=== PATIENT | female | born 1980 | race Caucasian/White ===

== ENCOUNTER 2019-04-16 12:57 | Outpatient (CLI) | payer BC ==
--- NOTE | 2019-04-16 13:45 | RAD ---
LEFT ANKLE 3 VIEWS: HISTORY: Injury, left ankle pain FINDINGS: Soft tissue swelling is present. The ankle mortise is maintained. No acute fracture or dislocation is identified.
== END 2019-04-16 12:58 | disposition home or self-care (01) ==
LOC: SCSRAD 12:57
PROVIDERS: ATTEND Obstetrics & Gynecology
DX: M25.572 Pain in left ankle and joints of left foot (principal)

== ENCOUNTER 2019-05-10 09:11 | Inpatient (IN) | payer BC ==
[2019-05-10] MEDS ORDERED: Morphine 4 MG/ML VIAL ONE ×2 (09:35→11:33)
[2019-05-10 09:50] LABS: #Eosinphils 0.1 thou/uL (0.0-0.7); #Lymphocytes 1.3 thou/uL (1.20-3.40); #Monocytes 0.3 thou/uL (0.11-0.59); #Neutrophils 3.4 thou/uL (1.40-6.50); %Basophils 0.1 % (0.0-1.0); %Eosinophils 2.3 % (0.0-10.0); %Lymphocytes 25.8 % (21.0-51.0); %Monocytes 5.8 % (0.0-10.0); Hemoglobin 14.6 g/dL (12.0-16.0); Mean Corpuscular HGB CONC 35.6 g/dL (32.0-36.0); Mean Corpuscular Hemoglobin 33.9 pg (27.0-31.0); Mean Corpuscular Volume 95.2 fL (78.0-98.0); Mean Platelet Volume 7.4 fL (7.4-10.4); Platelet Count 157 thou/uL (130-400); Red Blood Cell (RBC) Count 4.31 mill/uL (4.20-5.40); White Blood Cell (WBC) Count 5.2 thou/uL (4.8-10.8)
--- NOTE | 2019-05-10 09:53 | RAD ---
XR Chest 1 View Portable History: Cough Comparison: None. Findings: Lungs are clear. No pneumothorax or effusion. Cardiac silhouette and mediastinal contours a re within normal limits. No acute osseous abnormality. Right upper quadrant surgical clips. Impression: No acute intrathoracic abnormality.
[2019-05-10 09:59] LABS: BHCG - Serum Negative (NEGATIVE); Pregs Control Background? CLEAR/WHITE (CLR/WHITE); Pregs Control Bar Appear? YES (CONTROL BAR)
[2019-05-10 10:17] LABS: ALT (SGPT) 37 U/L (8-55); AST (SGOT) 59 U/L (5-34); Albumin 4.8 g/dL (3.5-5.0); Alkaline Phosphatase 74 U/L (40-110); Anion Gap 15 mmol/L (10-20); BUN (Urea Nitrogen) 8 mg/dL (7.0-18.7); Bilirubin, Total 1.5 mg/dL (0.2-1.2); Calc. Creatinine Clearance 0 mL/min (70-130); Calcium 9.8 mg/dL (7.8-10.44); Carbon Dioxide 23 mmol/L (22-29); Chloride 103 mmol/L (98-107); Estimated GFR-MDRD 90; Globulin 2.6 g/dL (2.4-3.5); Glucose 108 mg/dL (70-105); Lipase 171 U/L (8-78); Potassium 3.4 mmol/L (3.5-5.1); Protein, Total 7.4 g/dL (6.0-8.3); Sodium 138 mmol/L (136-145)
--- NOTE | 2019-05-10 10:44 | CT ---
CT abdomen and pelvis with IV contrast. Oral contrast was not administered. INDICATIONS: Abdominal pain COMPARISON: None FINDINGS: Lung bases are clear Evaluation of the liver reveals abnormal intra and extrahepatic biliary duct dilatation. There is denita dence of prior cholecystectomy with surgical clips in the gallbladder fossa. There is mild prominence of pancreatic duct. No definite pancreatic mass identified. Etiology for the biliary dilat ation is not apparent. Spleen upper normal size, otherwise unremarkable Stomach and duodenum appear unremarkable. Adrenal glands appear normal. Kidneys appear unremarkable. Small cortical cyst inferior right kidney measuring approximately 1.0 cm . Collecting structures and urinary bladder appear unremarkable. Small bowel loops are normal caliber and exhibit normal fold pattern. Appendix not definitely identified. No secondary sign of appendicitis. Large amount of stool throughout the colon. Aorta is normal caliber. No evidence of retroperitoneal or mesenteric adenopathy. Uterus unremarkable. IUD is seen within the endometrial cavity. Subcutaneous tissues, abdominal wall, and muscular structures appear unremarkable. Osseous structures appear unremarkable. IMPRESSION: 1. Intra and extra hepatic biliary duct dilatation. Postcholecystectomy change. Etiology is not appar ent. Recommend GI consultation.
[2019-05-10] MEDS ORDERED: Succinylcholine Chloride 20 MG/ML 10 ml SYRINGE FS ONE (11:08)
[2019-05-10] MEDS ORDERED: Lidocaine 1% PF 5 ML VIAL ONE (11:08)
[2019-05-10] MEDS ORDERED: Glycopyrrolate 0.2 MG/ML 5 ML SYRINGE ONE (11:08)
[2019-05-10] MEDS ORDERED: Rocuronium Bromide 10 MG/ML (10ML VIAL) ONE (11:08)
[2019-05-10] MEDS ORDERED: PROPOFOL 200 MG/20 ML VIAL ONE (11:08)
[2019-05-10] MEDS ORDERED: Dexamethasone 20 MG/5 ML VIAL ONE (11:08)
[2019-05-10] MEDS ORDERED: Ondansetron PF 4 MG/2 ML Vial ONE (11:08)
[2019-05-10 11:18] LABS: Bilirubin Negative (Negative); Blood, Urine Negative (Negative); Clarity Clear (Clear); Glucose, Urine (Dipstick) Normal (Negative); Leukocyte Negative Leu/uL (Negative); Nitrite Negative (Negative); Protein, Urine (Dipstick) Negative (Neg-Trace); Urobilinogen Normal mg/dL (Less than 2)
[2019-05-10] MEDS ORDERED: Ondansetron PF 4 MG/2 ML Vial IVP PRN (12:49)
[2019-05-10] MEDS ORDERED: Bisacodyl 10 MG SUPP PR PRN (12:49)
[2019-05-10] MEDS ORDERED: Morphine 2 MG/ML SYRINGE SLOW IVP PRN (12:51)
[2019-05-10] MEDS ORDERED: Iopamidol-370 76% 500 ML 1 ML ONE (13:16)
[2019-05-10] MEDS ORDERED: Magnevist 469MG/ML 20 ML VIAL ONE (13:24)
--- NOTE | 2019-05-10 13:40 | CON ---
DATE OF CONSULTATION: 05/10/2019 CHIEF COMPLAINT: Abdominal pain. 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 She started a steroid inhaler for that and this morning, she was coughing and pulled a muscle in her back and had more significant pain and took a Alpha for the pain. Shortly after drinking her coffee this morning, she had abrupt onset of epigastric tearing pain that radiated through to her back. No vomiting with this. No diarrhea, constipation, or blood in the stool. No fever. She had a normal bowel movement yesterday. Her weight has been stable. She forced herself to throw up to see if this would make her feel better, which did not help. She took a Pepcid Complete again with no help. Ultimately, the pain intensified and she came on to the emergency room for further care. She had lab work and a CT scan performed and GI was consulted to further evaluate. PAST MEDICAL HISTORY: Occasional reflux symptoms with rare dysphagia, for which she takes occasional Pepcid Complete. She has had migraine headaches in the past. She has not been on any NSAIDs recently. PAST SURGICAL HISTORY: Wrist surgery, breast augmentation, and cholecystectomy five years ago. FAMILY HISTORY: Positive for colon cancer in her father. He was diagnosed with advanced colon cancer around age 63. Her mother had Crohn disease and breast cancer. SOCIAL HISTORY: Social alcohol once per week. No smoking. No drugs. ALLERGIES: NO KNOWN DRUG ALLERGIES. MEDICATIONS: 1. She has an IUD with progesterone. 2. Occasional Pepcid Complete. 3. Occasional NSAID. REVIEW OF SYSTEMS: Negative x10 systems reviewed, except as stated in history of present illness. PHYSICAL EXAMINATION: VITAL SIGNS: Temperature 97.9, blood pressure 109/70, and pulse 79. GENERAL: She is in no acute distress. Alert and oriented x3. HEENT: Eyes have no scleral icterus. Oropharynx is clear without lesions. LYMPHATICS: No cervical or supraclavicular lymphadenopathy. LUNGS: Clear to auscultation bilaterally. HEART: Regular rate and rhythm without murmur. ABDOMEN: Soft. She is tender in the epigastric to right upper quadrant region without guarding. Her bowel sounds are present. EXTREMITIES: No lower extremity edema. Cranial nerves are grossly intact. LABORATORY DATA: White blood cell count 5.2, hemoglobin 14.6, and platelets 157. Potassium 3.4, creatinine 0.73, bilirubin 1.5, AST 59, ALT 37, alkaline phosphatase 74, lipase 171, and albumin 4.8. Serum test is negative. IMAGING: CT scan of the abdomen and pelvis shows periportal edema in the liver. On review of the CT with radiology, her bile duct is not actually dilated and measures around 5 mm. She has a significant amount of stool throughout the colon. IMPRESSION: Acute epigastric pain radiating through to her back. This is clinically most concerning for choledocholithiasis. She is status post cholecystectomy five years ago. Her bilirubin is mildly elevated with also mildly elevated AST. It could be that we were just catching her labs very early and that they were on the upswing. Her lipase is two times upper limit of normal, but not quite three times upper limit of normal. The pancreas looks normal on the CT scan. Again, we could be catching a very early gallstone pancreatitis. Her labs; however, not convincing with still only mild elevation of the AST and bilirubin. The CT scan was originally read as significant biliary dilation, intra and extrahepatic; however, this appears more likely to be periportal edema. She does not have obvious reason to have acute hepatitis. However, she has had an upper respiratory infection and bronchitis and taking an inhaled steroid over the last few days. Acute viral illness could cause some liver findings as well. Again, the abrupt onset of her symptoms and location will be more suggestive of a biliary source. RECOMMENDATIONS: MRI/MRCP. If this is negative, then we will follow the trend of her transaminases and lipase closely and then do more extensive blood work from a liver standpoint. If the MRCP is positive, then we will follow directly with ERCP today. Job ID: [id number]
[2019-05-10] MEDS ORDERED: Lactated Ringer's 1,000 ML IV SCH (13:45)
[2019-05-10] MEDS: Lactated Ringer's 1,000 ML IV SCH ×2 (14:25→19:51)
[2019-05-10 14:53] VITALS: BMI 20.8
--- NOTE | 2019-05-10 15:02 | MRI ---
MRI ABDOMEN WITH MRCP WITH AND WITHOUT CONTRAST: Date: 05/10/2019 INDICATION: Evidence of biliary duct dilatation seen on CT. FINDINGS: MRCP again demonstrates mild intra and extrahepatic biliary duct dilatation. Common duct is dilated t o the pancreatic head. There is abrupt change of caliber in the distal common duct and the pancreatic head just proximal to the ampulla. A stone is not identified. An obstructing mucosal lesion at this site should be excluded. Recommend ERCP. There is no evidence of liver or pancreas abnormality. Spleen is unremarkable. There is mild dilatati on of the pancreatic duct. Kidneys unremarkable with small renal cystic lesions seen. The visualized bowel loops are unremarkabl e. IMPRESSION: 1. Intra and extrahepatic biliary duct dilatation. The common duct is dilated to the pancreatic head . It has abrupt change of caliber just proximal to the ampulla. Recommend ERCP to rule out ampullary lesion or lesion in the distal duct just beyond the ampulla. 2. Liver, spleen, and pancreas otherwise unremarkable. POS: MADALYN
[2019-05-10 15:06] LABS: #Eosinphils 0.1 thou/uL (0.0-0.7); #Monocytes 0.4 thou/uL (0.11-0.59); #Neutrophils 3.9 thou/uL (1.40-6.50); %Basophils 0.1 % (0.0-1.0); %Eosinophils 1.1 % (0.0-10.0); %Lymphocytes 18.4 % (21.0-51.0); %Monocytes 6.9 % (0.0-10.0); %Neutrophils 73.4 % (42.0-75.0); Hemoglobin 12.6 g/dL (12.0-16.0); Mean Corpuscular HGB CONC 35.5 g/dL (32.0-36.0); Mean Corpuscular Hemoglobin 34.4 pg (27.0-31.0); Mean Corpuscular Volume 96.9 fL (78.0-98.0); Mean Platelet Volume 6.9 fL (7.4-10.4); Platelet Count 128 thou/uL (130-400); Red Blood Cell (RBC) Count 3.65 mill/uL (4.20-5.40); White Blood Cell (WBC) Count 5.2 thou/uL (4.8-10.8)
[2019-05-10] MEDS ORDERED: Iothalamate Meglumine 60% 50 ML VIAL FS ONE (15:09)
[2019-05-10] MEDS ORDERED: Midazolam HCl 2 mg/2 ml Vial ONE (15:10)
[2019-05-10] MEDS ORDERED: Fentanyl 100 MCG/2 ML VIAL ONE (15:10)
[2019-05-10] MEDS ORDERED: Indomethacin 50 MG SUPP ONE (15:15)
[2019-05-10 15:28] LABS: ALT (SGPT) 85 U/L (8-55); AST (SGOT) 102 U/L (5-34); Albumin 3.9 g/dL (3.5-5.0); Alkaline Phosphatase 84 U/L (40-110); Anion Gap 11 mmol/L (10-20); BUN (Urea Nitrogen) 7 mg/dL (7.0-18.7); Bilirubin, Total 1.6 mg/dL (0.2-1.2); Calc. Creatinine Clearance 111 mL/min (70-130); Calcium 8.8 mg/dL (7.8-10.44); Carbon Dioxide 25 mmol/L (22-29); Chloride 107 mmol/L (98-107); Estimated GFR-MDRD Greater than 90; Globulin 1.8 g/dL (2.4-3.5); Glucose 94 mg/dL (70-105); Lipase 131 U/L (8-78); Potassium 4.5 mmol/L (3.5-5.1); Protein, Total 5.7 g/dL (6.0-8.3); Sodium 138 mmol/L (136-145)
--- NOTE | 2019-05-10 15:44 | PDOC.HHP ---
Hospitalist HPI - History of Present Illness abdominal pain History of Present Illness: This is a 38 year old female patient who presented to the ER with abdominal pain that started around 8 am. The patient states that it was epigastric pain that was radiating to her RUQ and her back. She had some oatmeal and pepcid to see if this would provide her relief but it didn't. She also took ibuprofen but her pain persisted so she came to the ER. The patient states that her pain was intermittent and would come in waves. Her pain was so severe she thought she was hunched over on her knees, felt like she was going to pass out and . She also reported feeling hot and diaphoretic and having some nausea. She tried to induce vomiting but was unable to. She had no constipation or diarrhea. She denies frequency, urgency, dysuria, hematuria. The patient states she had a similar event 5 years ago and was found to have cholelithiasis. Her gallbladder was resected at the time. She had two similar attacks after that that were similar but nowhere near as severe as this. These were associated with odynophagia but this time she had no odynophagia. She had an EGD done that was normal per . She had no further occurrences after that until today. Patient also reports a cough that started on as well as chest congestion. She denies fevers, chills, runny nose. She has muscle aches from coughing. She went to her 's clinic and started taking trelegy but has not seen significant relief in her cough since then. She has no history of asthma. The patient had a well-woman exam three weeks ago that was unremarkable including normal LFTS. ED Course: The patient presented with normal vitals. Labs showed AST 59, ALT 37, ALP 74 which increased in the afternoon. UA was negative. Chest Xray was normal. CT abdomen showed prominence of pancreatic duct. MRCP showed CBD dilation to the pancreatic head. Patient was admitted for ERCP. The patient was given 2L of fluid, potassium, and 8 mg IV morphine. Hospitalist ROS - Review of Systems Constitutional: reports: chills. denies: fever Eyes: denies: vision change ENT: denies: ear pain, ear discharge Respiratory: reports: cough. denies: shortness of breath, hemoptysis Cardiovascular: denies: chest pain, palpitations, orthopnea Gastrointestinal: reports: nausea, abdominal pain. denies: vomiting Genitourinary: denies: dysuria, frequency, incontinence Musculoskeletal: denies: neck pain, shoulder pain, arm pain Neurological: denies: weakness, numbness, incoordination - Medication Medications: Active Medications Generic Name Dose Route Start Last Admin Trade Name Freq PRN Reason Stop Dose Admin Lactated Ringer's 1,000 mls @ 150 mls/hr 05/10/19 13:45 05/10/19 14:25 Lactated Ringer's IV 1,000 mls .[id number] AUGUSTIN Administration Trilegy NSAID prn Hospitalist History - Past Medical History Gastrointestinal: reports: GERD - Past Surgical History Past Surgical History: reports: Cholecystectomy Other Surgical History: Cholecystectomy 5-6 years ago Breast augmentation Wrist surgery - Family History Other Family History: Father: DM, hypertension, colon cancer. in 2010 Mother: asthma/COPD, breast cancer, Crohn's disease. 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 Mild rebound in Extremities: no cyanosis, no clubbing Hospitalist Results - Labs Result Diagrams: 05/10/19 14:54 05/10/19 14:54 Lab results: WBC 5.2 thou/uL (4.8-10.8) 05/10/19 14:54 Hgb 12.6 g/dL (12.0-16.0) 05/10/19 14:54 Hct 35.4 % (36.0-47.0) L 05/10/19 14:54 MCV 96.9 fL (78.0-98.0) 05/10/19 14:54 Plt Count 128 thou/uL (130-400) L 05/10/19 14:54 Neutrophils % 73.4 % (42.0-75.0) 05/10/19 14:54 Sodium 138 mmol/L (136-145) 05/10/19 14:54 Potassium 4.5 mmol/L (3.5-5.1) 05/10/19 14:54 Chloride 107 mmol/L (98-107) 05/10/19 14:54 Carbon Dioxide 25 mmol/L (22-29) 05/10/19 14:54 BUN 7 mg/dL (7.0-18.7) 05/10/19 14:54 Creatinine 0.61 mg/dL (0.6-1.1) 05/10/19 14:54 Glucose 94 mg/dL (70-105) 05/10/19 14:54 Calcium 8.8 mg/dL (7.8-10.44) 05/10/19 14:54 Total Bilirubin 1.6 mg/dL (0.2-1.2) H 05/10/19 14:54 AST 102 U/L (5-34) H 05/10/19 14:54 ALT 85 U/L (8-55) H 05/10/19 14:54 Alkaline Phosphatase 84 U/L (40-110) 05/10/19 14:54 Serum Total Protein 5.7 g/dL (6.0-8.3) L 05/10/19 14:54 Albumin 3.9 g/dL (3.5-5.0) 05/10/19 14:54 Lipase 131 U/L (8-78) H 05/10/19 14:54 Urine Ketones Negative mg/dL (Negative) 05/10/19 10:50 Urine Blood Negative (Negative) 05/10/19 10:50 Urine Nitrite Negative (Negative) 05/10/19 10:50 Ur Leukocyte Esterase Negative Tess/uL (Negative) 05/10/19 10:50 Hospitalist H&P A/P - Plan Plan: MRCP: intra and extrahepatic biliary duct dilation. Common duct is dilated to the pancreatic head. Abrupt change of caliber just proximal to the ampulla. Recommend ERCP to rule out ampullary lesion or lesion in the distal duct just beyond the ampulla. CT abdomen: intra and extra hepatic biliary duct dilation. POstcholecystectomy change. Chest X ray: no acute abnormality This is a 38 year old female who presented with severe abdominal pain, possibly from choledocholithiasis #Possible choledocholithiasis #Transaminitis - CT abdomen showed intra and extrahepatic biliary dilation. MRCP showed common duct dilated to pancreatic head. - GI consluted, patient is s/p ERCP with dilation of CBD -will try clear liquid diet, advance as tolerate - consider antibiotics if pain continues to worsen or spikes a fever - toradol prn and morphine prn for pain - repeat LFTs tomorrow Acute bronchitis - will order prednisone 40 mg daily, duoneb q8 hours - chest Xray was normal Renal cyst - [address] scan Thrombocytopenia - platelets 128, will monitor. Possibly dilutional Code status: full code
--- NOTE | 2019-05-10 16:17 | RAD ---
EXAM: XR ERCP PROVIDED CLINICAL HISTORY: Biliary dilatation COMPARISON: CT 05/10/2019 FINDINGS: Multiple spot fluoroscopic images from ERCP demonstrate balloon dilatation of the distal common duct. IMPRESSION: As above.
[2019-05-10] MEDS ORDERED: Promethazine HCl 25 MG/ML VIAL IM PRN (16:47)
[2019-05-10] MEDS ORDERED: Promethazine HCl 25 MG/ML VIAL SLOW IVP PRN (16:47)
[2019-05-10] MEDS ORDERED: Ondansetron HCl/PF 4 MG/2 ML Vial IVP PRN (16:47)
[2019-05-10] MEDS ORDERED: Ketorolac Tromethamine 30 MG/ML VIAL IVP PRN (17:57)
--- NOTE | 2019-05-10 18:14 | OP ---
DATE OF PROCEDURE: 05/10/2019 PROCEDURE PERFORMED: Endoscopic retrograde cholangiopancreatography with sphincterotomy and balloon sweep of the bile duct. PREOPERATIVE DIAGNOSES: Obstructive jaundice and mild gallstone pancreatitis. DESCRIPTION OF PROCEDURE: Informed consent was obtained from the patient. She was sedated with general anesthesia and placed in prone position. The duodenoscope was advanced easily to the second portion of the duodenum. The ampulla was identified and appeared unremarkable. The common bile duct was selectively cannulated easily with the guidewire. The sphincterotome was advanced into the bile duct, and cholangiogram was performed. Bile duct measured around 6 to 7 mm. The intra and extrahepatic ducts were normal. An obvious filling defect was not clearly seen. A complete sphincterotomy was performed. The bile duct was swept clear with a 9 mm balloon. Only a single small black flake of sludge was extracted. Occlusion cholangiogram confirmed the duct to be clear. The 9 mm balloon was passed easily through the sphincterotomy without resistance. The contrast and bile drained rapidly from the sphincterotomy site. The patient tolerated the procedure without immediate problems. IMPRESSION: 1. Cholangiogram showing 7 mm common bile duct without obvious filling defect. The intra and extrahepatic ducts were normal. 2. Complete sphincterotomy performed. 3. Balloon sweep of the bile duct with a 9 mm balloon revealed only a single tiny black flake of sludge. There is no significant stone. The 9 mm balloon passes easily through the sphincterotomy without resistance. Occlusion cholangiogram confirms the duct to be clear. 4. The duct was decompressed compared to the MRI images. I suspect that she passed a stone. Prior to the procedure, her labs were checked and after 2.5 L of fluid, her hemoglobin came down a couple of grams, however bilirubin went up a bit and her transaminases also increased at that point. Her lipase trended downward. RECOMMENDATIONS: 1. Check her liver tests and lipase in the morning. If her pain and liver tests are improving, then she should be ready to discharge home in the morning. 2. If the liver tests continue to rise, then we will plan additional labs for a more complete workup for a hepatocellular etiology of the lab findings and symptoms. 3. Advance diet as she tolerates. Job ID: [id number]
[2019-05-10] MEDS ORDERED: predniSONE 20 MG TAB PO SCH (18:30)
[2019-05-10] MEDS: Famotidine/PF 20 mg/2ml Vial SLOW IVP SCH (19:31)
[2019-05-11] MEDS: Lactated Ringer's 1,000 ML IV SCH (03:04)
[2019-05-11 06:01] LABS: #Lymphocytes 0.5 thou/uL (1.20-3.40); #Monocytes 0.1 thou/uL (0.11-0.59); #Neutrophils 4.3 thou/uL (1.40-6.50); %Basophils 0.3 % (0.0-1.0); %Eosinophils 0.2 % (0.0-10.0); %Lymphocytes 9.7 % (21.0-51.0); %Neutrophils 87.8 % (42.0-75.0); Hemoglobin 12.3 g/dL (12.0-16.0); Mean Corpuscular HGB CONC 36.2 g/dL (32.0-36.0); Mean Corpuscular Hemoglobin 34.7 pg (27.0-31.0); Mean Platelet Volume 7.7 fL (7.4-10.4); Platelet Count 156 thou/uL (130-400); RBC Distribution Width 11.8 % (11.5-14.5); Red Blood Cell (RBC) Count 3.54 mill/uL (4.20-5.40); White Blood Cell (WBC) Count 4.9 thou/uL (4.8-10.8)
[2019-05-11 06:17] LABS: ALT (SGPT) 70 U/L (8-55); AST (SGOT) 41 U/L (5-34); Albumin 3.7 g/dL (3.5-5.0); Alkaline Phosphatase 82 U/L (40-110); Anion Gap 10 mmol/L (10-20); BUN (Urea Nitrogen) 6 mg/dL (7.0-18.7); Bilirubin, Total 1.1 mg/dL (0.2-1.2); Calc. Creatinine Clearance 111 mL/min (70-130); Calcium 8.5 mg/dL (7.8-10.44); Carbon Dioxide 24 mmol/L (22-29); Chloride 108 mmol/L (98-107); Estimated GFR-MDRD Greater than 90; Glucose 157 mg/dL (70-105); Lipase 21 U/L (8-78); Potassium 3.9 mmol/L (3.5-5.1); Protein, Total 5.7 g/dL (6.0-8.3); Sodium 138 mmol/L (136-145)
[2019-05-11] MEDS ORDERED: predniSONE 20 MG TAB PO SCH (09:00)
[2019-05-11] MEDS: Famotidine/PF 20 mg/2ml Vial SLOW IVP SCH (09:23)
[2019-05-11 11:10] VITALS: BP 104/60; TEMP 98.3
--- NOTE | 2019-05-11 12:19 | PRG ---
DATE OF SERVICE: 05/11/2019 SUBJECTIVE: Elizabeth feels much better today. She has just some residual epigastric soreness, but feels much better in general. PHYSICAL EXAMINATION: VITAL SIGNS: Temperature 98.3, pulse 88, blood pressure 104/60. GENERAL: She is in no acute distress. Alert and oriented x3. LUNGS: Clear to auscultation bilaterally. HEART: Regular rate and rhythm without murmur. ABDOMEN: Soft. Minimal tenderness in the epigastric region without guarding. Bowel sounds are present. EXTREMITIES: No lower extremity edema. She tolerated the solid diet this morning. LABORATORY DATA: White blood cell count 4.9, hemoglobin 12.3, platelets 156. Creatinine 0.61, bilirubin 1.1, AST 41, ALT 70, alkaline phosphatase 82, albumin 3.7, lipase 21. IMPRESSION: Mild acute gallstone pancreatitis. Her bilirubin is returned back to normal after sphincterotomy. Her transaminases are trending down. Her lipase has dropped from 170 to 21. I think we got this very early and started fluids early in the process before she bumped her labs higher. RECOMMENDATIONS: 1. She will discharge home today. 2. I would recheck her liver enzymes in a couple of weeks. 3. She did have a significant amount of stool noted in her colon at the time of the initial CT scan. She could take some MiraLAX daily over the next week. 4. Colonoscopy should be performed at age 42 due to family history of colon cancer in her father diagnosed in his 60s with advanced colon cancer. Job ID: [id number]
--- NOTE | 2019-05-11 12:23 | DIS ---
DATE OF ADMISSION: 05/10/2019 DATE OF DISCHARGE: 05/11/2019 DISCHARGE DIAGNOSES: 1. Acute pancreatitis, possibly secondary to choledocholithiasis. 2. Transaminitis. 3. Acute bronchitis. 4. Thrombocytopenia. 5. Hypokalemia. 6. Mild hyperglycemia. 7. Renal cyst. CONSULTATIONS: Dr. Chandu Starr with GI. PROCEDURES: Endoscopic retrograde cholangiopancreatography with sphincterotomy and balloon sweep of the bile duct. BRIEF HISTORY OF PRESENT ILLNESS: This is a 38-year-old female with past medical history of gestational diabetes, GERD, who presented to the emergency room with severe abdominal pain in her epigastric area that was radiating to her right upper quadrant and her back. This was associated with nausea. The patient reported history of cholelithiasis in the past. Upon presentation, the patient was noted to have transaminitis with AST 59, ALT 37, and alkaline phosphatase of 74. CT abdomen showed prominence of the pancreatic duct. MRCP showed CBD dilation to the pancreatic head. The patient was admitted for possible ERCP. HOSPITAL COURSE: Mild pancreatitis secondary to likely choledocholithiasis: The patient had an elevated lipase of 171 on 05/09. She underwent ERCP according to MRCP findings. underwent an ERCP. Her common bile duct was noted to be 6 to 7 mm and there was no obvious filling defect. She had a complete sphincterotomy performed. She only had a small black flake of sludge that was extracted. The patient after her ERCP had resolution of her abdominal pain and was tolerating a regular diet. Her lipase went improved to 21, and her LFTs improved. She will be discharged and should follow up with her PCP in a week. She should have her LFTs repeated in [address] Starr will follow up on the results. Acute bronchitis: The patient had reported a low-grade temperature of 100.8 a few days prior to admission. She was also complaining of a dry cough and had some wheezing. She was using a Trelegy inhaler prescribed by Dr. Nicolás Johnson. However, due to persistent cough and wheezing, she was started on prednisone 40 mg and standing DuoNeb while in the hospital. Her chest x-ray was normal. On discharge, her lungs were clear and she will continue prednisone for 3 more days. Transaminitis: AST peaked at 102, ALT of 85, and alkaline phosphatase of 84. After her sphincterotomy, her LFTs came down to 41 and 70 respectively. She should get repeat LFTs in 2 weeks and her PCP should call Dr. Starr with the results. Thrombocytopenia: The patient had a platelet count of 128 on 05/09, which improved to 156 on the day of discharge. She denies any bleeding. Hypokalemia: The patient had a potassium of 3.4 on admission, which improved to 3.9 on discharge. Renal cyst: The patient had a CT scan of her abdomen, which noted a 1-cm renal cyst. This can be followed up as an outpatient. DISCHARGE PHYSICAL EXAMINATION: VITAL SIGNS: Temperature 99.3, heart rate 86, respiratory rate 16, O2 saturation 99% on room air, and blood pressure 106/68. GENERAL: The patient is alert, awake, and oriented x3. CARDIOVASCULAR: Regular rate and rhythm with no murmurs, rubs, or gallops. LUNGS: Clear to auscultation bilaterally. ABDOMEN: Diminished bowel sounds. Mild right upper quadrant tenderness with no rebound, guarding, or rigidity. EXTREMITIES: No edema. PERTINENT LABORATORY DATA: CBC on 05/10: White count 4.9, hemoglobin 12.3, hematocrit 33.9, and platelet count 156. CMP on 05/10: AST 41, ALT 70, and alkaline phosphatase 82. UA on 05/09: Unremarkable. PERTINENT IMAGING DATA: Chest x-ray on 05/09: No acute abnormality. CT abdomen on 05/09: Shows intra and extrahepatic biliary duct dilation. The patient has a small cortical cyst in the inferior right kidney measuring 1 cm. There is a large amount of stool throughout the colon. MRCP on 05/09: Shows intra and extrahepatic biliary duct dilation. Common duct is dilated to the pancreatic head. There is abrupt change of caliber just proximal to the ampulla. DISCHARGE CONDITION: Stable. ACTIVITY: As tolerated. DIET: Regular diet. DISCHARGE INSTRUCTIONS: The patient should follow up with her PCP in a week. She should have her LFTs repeated in [address] Starr with the results. She should have a colonoscopy done at the age of 42. Continue taking prednisone for 3 more days for bronchitis. DISCHARGE MEDICATIONS: New medications: Prednisone 40 mg for 3 days. All other home medications were resumed. Job ID: [id number] [facility]
--- NOTE | 2019-05-17 23:10 | PQF ---
AMINTA MURPHY FLORIAN, [facility] [id number] CLINICAL DOCUMENTATION CLARIFICATION FORM: POST DISCHARGE Addendum to original discharge summary date: ____ Late entry note date: __ DATE: 05/17/2019 ATTN: Dr Hanna [facility] Please exercise your independent, professional judgment in responding to the clarification form. Clinical indicators are provided on the bottom of this form for your review Please check appropriate box(s) to clarify if the following diagnosis has been ruled in or ruled out: Choledocholithiasis [ ] Ruled in diagnosis [ ] Continue to treat [ ] Resolved [ ] Ruled out diagnosis [ X ] Cannot rule out diagnosis [ ] Other diagnosis [ ] Unable to determine For c ontinuity of documentation, please document condition throughout progress notes and discharge summary. Thank You. CLINICAL INDICATORS - SIGNS / SYMPTOMS / LABS Laboratory 05/09 Total Bilirubin 1.5, AST 59, ALT 37, Albumin 4.8, Globulin 2.6 Albumin/Globulin Ratio 1.8, Lipase 171 Hospitalist H&P p1 05/09 Dr Hanna presented to ER with abdominal pain that started around 8AM. Pt states that it was epigastric pain that was radiating to her RUQ and her back Hospitalist H&P p1 3 Dr Hanna She also reported feeling hot and diaphoretic and having some nausea. She tried to induce vomiting but was unable to. Hospitalist H&P p1 05/09 Dr Hanna She had similar event 5 years ago and was found to have cholelithiasis. Her gallbladder was resected at that time Hospitalist H&P p4 05/09 Dr Hanna Possible Choledocholithiasis, transaminitis CT abdomen showed intra and extrahepatic biliary dilation. MRCP showed common duct dilated to pancreatic head Operative report p1 05/09 Dr Matty Branham sweep of the bile duct with a 9mm balloon revealed only single tiny black flakes of sludge. There is no signifincant stone Abdomen MRI p1 05/09 Dr Nguyễn A stone is not identified. An obstructing mucosal lesion at this site should be excluded RISK FACTORS Hospitalist H&P p2 05/09 - GERD Hospitalist H&P p2 05/09 - s/p Cholecystectomy Operative report p1 05/09 Obstructive Jaundice Operative report p1 05/09 Gallstone Pancreatitis TREATMENTS MAY 11 IV Zofran 4mg MAY 11 IV Pepcid 20mg MAY 11 Indocin 50mg po MAY 11 IV Morphine Sulfate 2mg MAY 11 Prednisone 40mg po MAY [address] abdomen ordered 05/09 ERCP with ballon sweep of bile duct05/09 by Matty Consult 05/09 Dr Starr - Gastroenterology Consult (This form is maintained as a part of the permanent medical record) 2014 [employer]. All Rights Reserved [email or web address]
== END 2019-05-11 12:52 | disposition home or self-care (01) | DRG 444 ==
LOC: ERS 09:11 → EEVIPCON 14:34 → T4-A 14:34
PROVIDERS: ADMIT Internal Medicine; ATTEND Internal Medicine
PROC: 0FC98ZZ Extirpation of Matter from Common Bile Duct, Via Natural or Artificial Opening Endoscopic (ICD-10-PCS; principal; 2019-05-10)
DX: K80.51 Calculus of bile duct without cholangitis or cholecystitis with obstruction (principal); K85.10 Biliary acute pancreatitis without necrosis or infection; J20.9 Acute bronchitis, unspecified; D69.6 Thrombocytopenia, unspecified; E87.6 Hypokalemia; R73.9 Hyperglycemia, unspecified; N28.1 Cyst of kidney, acquired; K21.9 Gastro-esophageal reflux disease without esophagitis; Z90.49 Acquired absence of other specified parts of digestive tract; Z79.899 Other long term (current) drug therapy
CPT/HCPCS: 36415; 71045; 74177; 74183; 74330; 80053; 81003; 83690; 84703; 85025; 93005; 94640; 96361; 96374; 96376; A9579; J1100; J1885; J2001; J2250; J2270; J2405; J2704; J3010; J7512; J7620; Q9967; S0028

== ENCOUNTER 2025-02-11 14:57 | Emergency (ER) | payer BC ==
[~2025-02-11 14:57] MED LIST: Iopamidol-370 76% 500 ML MDV (1 ML CHARGE) ONE
[2025-02-11] MEDS ORDERED: Metoclopramide HCl 10 MG (2 mL) VIAL ONE (16:37)
[2025-02-11] MEDS ORDERED: diphenhydrAMINE 50 MG/ML VIAL ONE (16:37)
[2025-02-11 16:41] LABS: #Basophils Less than 0.03 10x3/uL (0.0-0.2); #Eosinophils 0.18 10x3/uL (0.0-0.7); #Monocytes 0.35 10x3/uL (0.11-0.59); #Neutrophils 3.36 10x3/uL (1.40-6.50); %Basophils 0.4 % (0.0-1.0); %Eosinophils 3.4 % (0.0-10.0); %Lymphocytes 25.3 % (21.0-51.0); %Monocytes 6.7 % (0.0-10.0); %Neutrophils 64.0 % (42.0-75.0); Hematocrit 39.5 % (36.0-47.0); Hemoglobin 13.9 g/dL (12.0-16.0); Mean Corpuscular Hemoglobin 32.7 pg (27.0-31.0); Mean Corpuscular Volume 92.9 fL (78.0-98.0); Platelet Count 195 10x3/uL (130-400); Red Blood Cell (RBC) Count 4.25 mill/uL (4.20-5.40); White Blood Cell (WBC) Count 5.25 10x3/uL (4.8-10.8)
[2025-02-11 16:50] LABS: BHCG - Serum Negative (NEGATIVE); Pregs Control Background? CLEAR/WHITE (CLR/WHITE); Pregs Control Bar Appear? YES (CONTROL BAR)
[2025-02-11 16:54] LABS: INR-International Normal Ratio 1.0; Prothrombin Time 13.7 sec (12.0-14.7)
[2025-02-11 16:55] LABS: ALT (SGPT) 21 U/L (Less than 34); AST (SGOT) 24 U/L (11-34); Albumin 4.9 g/dL (3.1-4.5); Alkaline Phosphatase 60 U/L (40-110); Anion Gap 12 mmol/L (10-20); BUN (Urea Nitrogen) 12 mg/dL (7.0-18.7); Bilirubin, Total 0.8 mg/dL (0.3-1.2); Calc. Creatinine Clearance 0 mL/min (70-130); Calcium 9.6 mg/dL (7.8-10.44); Carbon Dioxide 27 mmol/L (22-29); Chloride 105 mmol/L (98-107); Globulin 2.4 g/dL (2.4-3.5); Glucose 92 mg/dL (70-105); PTT 28.9 sec (22.9-36.1); Potassium 3.8 mmol/L (3.5-5.1); Sodium 140 mmol/L (136-145)
== END 2025-02-11 18:52 | disposition home or self-care (01) ==
LOC: ERS 14:57
DX: R51.9 Headache, unspecified (principal); R29.700 NIHSS score 0
CPT/HCPCS: 70450; 70496; 70498; 80053; 84703; 85025; 85610; 85730; J1200; J2765